=== PATIENT | female | born 1980 | race Caucasian/White ===

== ENCOUNTER 2023-08-11 04:01 | Day surgery (SDC) | payer OTHER ==
[2023-08-06 08:33] VITALS: BMI 36.8
[2023-08-11] MEDS ORDERED: PROMETHAZINE HCL 25 MG/1 ML VIAL IVPB PRN (12:36)
[2023-08-11] MEDS ORDERED: ONDANSETRON 4 MG/2 ML VIAL IVPUSH PRN (12:36)
[2023-08-11] MEDS ORDERED: oxyCODONE HCL 5 MG TABLET PO PRN (12:36)
[2023-08-11] MEDS ORDERED: FENTANYL CITRATE/PF 50 MCG/ML VIAL ONE ×4 (14:01→15:43)
[2023-08-11] MEDS ORDERED: PROPOFOL 20 ML ONE (14:01)
[2023-08-11] MEDS ORDERED: MIDAZOLAM HCL 2 MG/2 ML SINGLE DOSE VIAL ONE (14:01)
[2023-08-11] MEDS ORDERED: ACETAMINOPHEN INJECTION 100 ML IVPB ONE (15:19)
[2023-08-11] MEDS: LACTATED RINGERS SOLUTION 1,000 ML IV SCH (15:20)
[2023-08-11] MEDS: ACETAMINOPHEN 1000 MG/100 ML BAG IVPB ONE ×2 (15:21→17:29)
[2023-08-11] MEDS ORDERED: ACETAMINOPHEN 325 MG TABLET (FP) PO PRN (15:32)
[2023-08-11] MEDS ORDERED: IBUPROFEN 400 MG TABLET (FP) PO PRN (15:32)
[2023-08-11 18:35] VITALS: BP 151/78; PULSE 80; RESP 18; TEMP 97.3
== END 2023-08-11 18:37 | disposition home or self-care (01) ==
LOC: JASU-SURG 04:01
PROVIDERS: ATTEND Obstetrics & Gynecology
PROC: 0UDB8ZZ Extraction of Endometrium, Via Natural or Artificial Opening Endoscopic (ICD-10-PCS; principal; 2023-08-11 13:00)
DX: N93.9 Abnormal uterine and vaginal bleeding, unspecified (principal)
CPT/HCPCS: 88305-TC; 94760; J0131